=== PATIENT | female | born 1990 | race Caucasian/White ===

== ENCOUNTER 2025-01-03 18:53 | Emergency (ER) | payer SELFPAY ==
--- OUTSIDE RECORDS SUMMARY | 2025-01-03 18:59 | XMS_ITS | Clinical Summary ---
Author Organization [facility] Address [address] [place] [address] Phone Care Team Providers Care Radiosonde Operator Name Role Phone Provider, None Primary Care Provider Unavailabl e Allergies Active Allergy Reactions Criticality Noted Date Comments Amoxicillin Hives Reaction: Hives, Medications albuterol 108 (90 Base) MCG/ACT Aerosol SolutionIndicati ons:Pneumonia of both lungs due to infectious organism, unspecified part of lung take 2 Puffs by inhalation every 6 hours as needed for Wheezing or Cough. 8.5 g 0 Active Additional Information Patient not taking.Reported on 09/26/2024 venlafaxine (Effexor XR) 37.5 MG CAPSULE SR 24 HR Take 1 Capsule by mouth See Admin Instructions. 30 Capsule 2 Active Additional Information Patient not taking.Reported on 09/26/2024 cyclobenzaprine (FLEXERIL) 5 MG Tablet Take 1 Tablet by mouth 3 times daily as needed for Muscle spasms. 15 Tablet 3 Active Additional Information Patient not taking.Reported on 09/26/2024 traMADol (ULTRAM) 50 MG TabletIndication s:Open fracture of nasal bone, initial encounter Take 1-2 Tablets by mouth every 6 hours as needed for Severe pain. 12 Tablet 4 Active Additional Information Patient not taking.Reported on 09/26/2024 Active Problems No known active problems Family History Medical History Relation Name Comments High Cholesterol Father Rheumatoid Arthritis Father High Cholesterol Maternal Grandmother Hypertension Maternal Grandmother Rheumatoid Arthritis Maternal Grandmother High Cholesterol Mother Migraines Mother Cancer Paternal Grandfather Diabetes Paternal Grandfather Heart Attack Paternal Grandfather Stroke Paternal Grandfather Asthma Paternal Grandmother Congestive Heart Failure Paternal Grandmother Hypertension Paternal Grandmother Stroke Paternal Grandmother Relation Name Status Comments Father Alive Maternal Grandfather Other Maternal Grandmother Alive Mother Alive Paternal Grandfather Paternal Grandmother Alive Social History Tobacco Use Types Packs/Day Years Used Date Smoking Tobacco: Former Cigarettes Q uit: 03/27/2019 Smokeless Tobacco: Never Tobacco Cessation:Counseling Given: Not Answered Alcohol Use Standard Drinks/Week Comments Yes 2 (1 standard drink = 0.6 oz pur e alcohol) Sexually Active Control Partners Comments Yes None Male Comments No Sex and Gender Information Value Date Recorded Sex Assigned at Not on file Legal Sex Female 7:46 PM CDT Gender Identity Not on file Sexual Orientation Not on file Last Filed Vital Signs Vital Sign Reading Time Taken Comments Blood Pressure 118/60 09/26/2024 12:11 PM TRIPE WASHER Pulse 79 09/26/2024 12:11 PM TRIPE WASHER Temperature 36.4 C (97.6 F) 09/26/2024 12:11 PM TRIPE WASHER Respiratory Rate 20 09/26/2024 12:11 PM TRIPE WASHER Oxygen Saturation 100% 06/23/2024 11:45 AM CDT Inhaled Oxygen Concentration - - Weight 81.6 kg (180 lb) 06/23/2024 9:01 AM CDT Height 162.6 cm (5' 4 ) 06/23/2024 9:01 AM CDT Body Mass Index 30.9 06/23/2024 9:01 AM CDT Plan of Treatment Health Maintenance Due Date Last Done Comments Hepatitis C Virus (HCV) Screening 1992 TdaP Immunization 1992 Pap Smear 2013 Hepatitis B Immunization (2 of 3 - 19+ 3-dose series) 04/21/2016 03/24/2016 Cervical Cancer Screening (CCS) 2022 HPV/Cotest 2022 Influenza Immunization (#1) 2024 SARS-COV-2 Immunization (2 - season) 2024 12/03/2021 Respiratory Syncytial Virus (RSV) Immunization (Adult) (1 - 1-dose 75+ series) 2067 Meningococcal Immunization (ACWY) Aged Out No longer eligible based on patient's age to complete this topic Pneumococcal Immunization Combined Aged Out No longer eligible based on patient's age to complete this topic Rotavirus Immunization Aged Out No lo nger eligible based on patient's age to complete this topic Insurance [facility] Care Teams Radiosonde Operator Relationship Specialty Start Date End Date Provider, None [place] PCP - General 07/23/22
[2025-01-03 19:01] VITALS: BP 122/80; PULSE 106; RESP 22; TEMP 36.4; O2SAT 97
--- NOTE | 2025-01-03 19:24 | ED_ITS ---
HPI - Nausea/Vomiting/Diarrhea General Chief complaint: Upper Respiratory Infection Stated complaint: throwing up Time Seen by Provider: 01/03/25 19:24 Source: patient and RN notes reviewed Mode of arrival: ambulatory Limitations: no limitations History of Present Illness HPI Narrative: 34-year-old female presented for complaint of nausea and vomiting, onset yesterday. Father says she appeared pale, hot, and sweaty today. Also reports a productive cough for 1 week. Denies shortness of breath, wheezing or abdominal pain. Not taking anything for symptoms. Related Data Allergies Allergy/AdvReac Type Severity Reaction Status Date / Time No Known Allergies Allergy Verified 01/03/25 19:08 Review of Systems Review of Systems: CONSTITUTIONAL: reports body aches, fever, chills ENT: reports rhinorrhea, congestion CARDIOVASCULAR: Denies chest pain, palpitations, or edema. RESPIRATORY: reports cough denies dyspnea. GASTROINTESTINAL: Endorses nausea, vomiting, Denies abdominal pain, diarrhea. hematochezia, melena, hematemesis GENITOURINARY: Denies dysuria, hematuria, or CVA tenderness. SKIN: Denies rash NEUROLOGIC: Denies headache, numbness, tingling, or weakness. All systems reviewed & are unremarkable except as noted in HPI and below PMFSH Comments At time of signature, I have reviewed and agree with nursing past medical, surgical, social and family history unless otherwise noted. Please see nursing chart for further information. There is no relevant family history pertinent to the presenting complaint Exam Narrative: GENERAL: ill-appearing, nontoxic and in no acute distress. EYES: EOMI. Conjunctivae normal. ENT: Mucous membranes pink and moist. CHEST: No respiratory distress. Clear to auscultation.Moist nonproductive cough HEART: Regular rate and rhythm. No murmur appreciated. Normal peripheral pulses. ABDOMEN: abd soft, nondistended, normal active bowel sounds. Nontender abdomen, No guarding, rebound tenderness, asymmetry EXTREMITIES: Normal range of motion. No edema. SKIN: Warm, dry, no rash. Capillary refill normal. Normal skin turgor. NEURO: No focal deficits. Alert and oriented x3. PSYCH: Normal affect. Course Course Emergency Course: Patient is aware of diagnosis, understands and agrees to treatment plan. Anticipatory guidance given. Patient agrees to follow-up as directed and is aware of reasons to seek care at the emergency department. Portions of this record may have been created with voice recognition software Level of Care: Express Care Visit MDM - Nausea/Vomiting/Diarrhea MDM Narrative Medical decision making narrative: Discussed physical exam findings, neg flu and covid. Shared decision making deferred CXR at this time, will send z-pack, and ondansetron. Advised supportive measures and signs/symptoms to go to the ER at length. Pt is appropriate for outpt treatment and f/u. Differential Diagnosis Differential diagnosis: Likely traveler's diarrhea, food poisoning, gastroenteritis and dehydration Discharge Plan Discharge Clinical Impression: Gastroenteritis, Acute lower respiratory infection Patient Disposition: Home Condition: Stable Instructions: Antibiotic Form, Acute Bronchitis (ED), Acute Nausea and Vomiting (ED) Additional Instructions: Stay hydrated. Take small sips of fluid containing electrolytes frequently. Clear liquids (broth, jello, tea, sprite, pedialyte) [place] foods (bananas, rice, applesauce, toast, crackers) Avoid fatty, greasy, fried or spicy foods. Limit dairy until symptoms are improved. Take ondansetron as needed for nausea/vomiting You should go to the hospital if you experience persistent nausea and vomiting that does not resolve and does not allow you to tolerate any food or fluids, fevers, increasing abdominal pain, persistent diarrhea, dizziness, fainting, or for any other concerns. -- Pneumonia is a lung infection that can cause a fever, cough, and trouble breathing. How it spreads: When someone with bacterial pneumonia coughs, sneezes, or talks, they release respiratory droplets into the air that can be inhaled by others.?You can also get pneumonia by touching a contaminated surface or object and then touching your mouth or nose. You're generally contagious for around 48 hours after starting antibiotics and your fever goes away.? To prevent the spread of pneumonia, you can:? ? Get vaccinated? ? Wash your hands often with soap and water for 20 seconds? ? Cover your mouth with a tissue when you cough or sneeze? ? Avoid people who are already sick with pneumonia? ? Stay home when you have pneumonia Take antibiotics as directed until complete. eat small frequent meals. Get lots of rest and drink fluids. Alternate Tylenol and ibuprofen for pain/fever [id number] cough medication can cause drowsiness, take according to package directions If you have nasal congestion, you can take Zyrtec, Claritin along with Flonase spray Call your Primary Care Doctor and make a follow-up appointment in 3 days. Go to the ER for worsening symptoms or concerns Patient Language: Indonesian Prescriptions: New azithromycin [Zithromax Z-Jorge] 250 mg tablet See Rx Instructions .ROUTE .COMPLEX Qty: 6 0RF Rx Instructions: For 250 mg dose pack: take 500 mg today (day 1), then 250 mg for 4 days (days 2-5) ondansetron 4 mg tablet,disintegrating 4 mg PO Q8H PRN (Reason: nausea and vomiting) Qty: 20 0RF Follow-up/Referrals: PHYSICIAN,DIRECTOR OF FINANCIAL REPORTING [Primary Care Provider] - Stand Alone Forms: Work/School Release IP Time of Disposition: 19:36
[2025-01-03 19:27] LABS: EDCOVIDSCREEN Negative (Negative); EDINFLUASCREEN Negative (Negative); EDINFLUBSCREEN Negative (Negative)
== END 2025-01-03 19:44 | disposition home or self-care (01) ==
PROVIDERS: Emergency Provider Nurse Practitioner Family
DX: K52.9 Noninfective gastroenteritis and colitis, unspecified (principal); J22 Unspecified acute lower respiratory infection; Z20.822 Contact with and (suspected) exposure to COVID-19
CPT/HCPCS: 87426; 87804; 99203; G0463